=== PATIENT | male | born 1950 | race Caucasian/White ===

== ENCOUNTER → 2021-07-12 13:18 | Outpatient (CLI) | payer MEDICARE, OTHER, SELFPAY ==
[2021-07-12 15:18] LABS: Prostate Specific Antigen < 0.064 ng/mL (0.10-4.00)
== END ==
PROVIDERS: Referring Provider Student in an Organized Health Care Education/Training Program; Visit Provider Student in an Organized Health Care Education/Training Program
DX: C61 Malignant neoplasm of prostate (principal)
CPT/HCPCS: 36415; 84153

== ENCOUNTER → 2021-10-17 11:35 | Outpatient (CLI) | payer MEDICARE, BC, SELFPAY ==
[2021-10-17 13:26] LABS: Prostate Specific Antigen < 0.064 ng/mL (0.10-4.00)
== END ==
PROVIDERS: Referring Provider Student in an Organized Health Care Education/Training Program; Visit Provider Student in an Organized Health Care Education/Training Program
DX: C61 Malignant neoplasm of prostate (principal)
CPT/HCPCS: 36415; 84153

== ENCOUNTER → 2022-04-17 13:40 | Outpatient (CLI) | payer MEDICARE, BC, SELFPAY ==
[2022-04-17 15:05] LABS: Hematocrit 45.2 % (41-53); Hemoglobin 15.4 g/dL (13.5-17.5); Mean Corpuscular HGB Conc 34.1 % (30-36); Mean Corpuscular Hemoglobin 29.4 PG (26-34); Mean Corpuscular Volume 86.2 fL (80-100); Platelet Count 163 X10^3/uL (150-400); Red Blood Cell Count 5.24 X10^6/uL (4.5-5.9); Red Cell Distribution Width 13.9 % (11.6-14.8); White Blood Cell Count 5.6 X10^3/uL (4.5-11.0)
[2022-04-17 15:52] LABS: Alanine Aminotransferase 15 IU/L (<50); Albumin 4.5 g/dL (3.5-5.0); Albumin Globulin Ratio 1.5 (1.0-2.8); Alkaline Phosphatase 94 U/L (38-126); Aspartate Aminotransferase 26 IU/L (17-59); BUN Creatinine Ratio 16.7 (6-22); Bilirubin Total 0.7 mg/dL (0.2-1.3); Blood Urea Nitrogen 20 mg/dL (9-20); Calcium 9.3 mg/dL (8.4-10.2); Carbon Dioxide 28 mmol/L (22-32); Chloride 106 mmol/L (98-107); Cholesterol 288 mg/dL (140-199); Estimated Glomerular Filt Rate > 60 mL/min (>60); Glucose 91 mg/dL (80-110); HDL Cholesterol 65 mg/dL (40-60); HEMOLYSIS < 15 (0-50); LDL Cholesterol Calculated 183 mg/dL (<100); Potassium 4.3 mmol/L (3.4-5.1); Sodium 141 mmol/L (137-145); Total Protein 7.5 g/dL (6.3-8.2); Triglycerides 198 mg/dL (35-150)
[2022-04-17 16:21] LABS: TSH w/ Reflex to FT4 1.85 uIU/mL (0.47-4.68)
[2022-04-17 16:25] LABS: Prostate Specific Antigen < 0.064 ng/mL (0.10-4.00)
[2022-04-17 16:40] LABS: Vitamin B12 379 pg/mL (239-931)
== END ==
PROVIDERS: PCP Internal Medicine; Referring Provider Internal Medicine; Visit Provider Internal Medicine
DX: E78.2 Mixed hyperlipidemia (principal); C61 Malignant neoplasm of prostate; I10 Essential (primary) hypertension; I25.10 Atherosclerotic heart disease of native coronary artery without angina pectoris; E53.8 Deficiency of other specified B group vitamins
CPT/HCPCS: 36415; 80053; 80061; 82607; 84153; 84443; 85027

== ENCOUNTER → 2022-08-26 11:08 | Outpatient (CLI) | payer MEDICARE, BC, SELFPAY ==
[2022-08-26 12:31] LABS: Prostate Specific Antigen < 0.064 ng/mL (0.10-4.00)
== END ==
PROVIDERS: PCP Internal Medicine; Referring Provider Internal Medicine; Visit Provider Internal Medicine
DX: C61 Malignant neoplasm of prostate (principal)
CPT/HCPCS: 36415; 84153

== ENCOUNTER 2022-10-30 07:34 | Day surgery (SDC) | payer MEDICARE, BC, SELFPAY ==
--- NOTE | 2022-10-30 | PATH_ITS ---
[facility] Accession Number: [id number] No. of containers..01 Tissue . 01 Material submitted: . hepatic flexure - HEPATIC FLEXURE COLON POLYP . 01 Diagnosis: Hepatic Flexure Polyp: Tubular adenoma. MRV 11/01/2022 1130 Local . 01 Electronically signed: . Yves Bills MD, PhD, Pathologist NPI- [id number] . 01 Gross description: . HEPATIC FLEXURE COLON POLYP: Received in formalin is 1 fragment(s) of richardson, soft tissue measuring 0.4 x 0.2 x 0.2 cm submitted entirely in 1 cassette(s) /CPE 10/31/2022 0523 Local . 01 Pathologist provided ICD-10: D12.3 . 01 CPT . 495123 Specimen Comment: A courtesy copy of this report has been sent to [phone] Performed at: 01 [facility] [address] [place] [address], [place], [place] [id number] MD Kareem Mclaughlin MD Phone: [phone]
[2022-10-30 09:18] VITALS: BP 165/79; PULSE 65; RESP 16; TEMP 36.2; O2SAT 98; BMI 25.1
[2022-10-30 09:30] LABS: COVID19 -Nasal RAPID Negative (Negative)
[2022-10-30] MEDS: LACTATED RINGERS 1,000 ML 42 ML IV (09:35)
--- NOTE | 2022-10-30 09:48 | PM.HP.1 ---
History of Present Illness History of Present Illness Date Patient Seen: 10/30/22 Time Patient Seen: 09:48 Chief complaint: COLONOSCOPY Narrative: h/o colon polyps, last scope over 15 yrs ago. no symptoms. Patient History Medical History Chicken pox Colon polyps Coronary artery disease Essential hypertension Hearing loss Hemorrhoid History of colonic polyps History of elevated PSA (~2020) History of urinary incontinence Measles Medicare annual wellness visit, initial Mixed hyperlipidemia Mumps Ocular migraine Osteoarthritis Prostate cancer (~2020) PVC (premature ventricular contraction) Rubella Tinnitus Surgical History Anesthesia Hemorrhoid (~01/2021) History of radical prostatectomy (~03/2021) Family & Social History Family History Father Alzheimer's disease History of heart disease Mental health problem Stroke Mother History of heart disease Hypertension Hyperlipidemia Stroke Grandfather Myocardial infarction Grandmother Pneumonia Grandfather Alzheimer's disease Grandmother Congestive heart failure Social History: household members spouse Tobacco & Substance use: Smoking Status Never smoker alcohol intake frequency holiday/special occasion Substance Use Type does not use Meds Home Medications and Allergies Home Medications Medication Instructions Recorded Confirmed Type docusate sodium 100 mg capsule 100 mg PO DAILY PRN Constipation 02/28/22 10/30/22 History (Colace) rosuvastatin 10 mg tablet 10 mg PO .2 times weekly #30 tabs 02/28/22 10/30/22 Rx verapamil 240 mg 24 hr 240 mg PO DAILY #90 caps 08/26/22 10/30/22 Rx capsule,extended release sodium,potassium,mag sulfates 17.5 See Rx Instructions PO .COMPLEX 10/01/22 10/30/22 Rx gram-3.13 gram-1.6 gram oral soln #354 mL (Suprep Bowel Prep Kit) Allergies Allergy/AdvReac Type Severity Reaction Status Date / Time adhesive tape AdvReac Mild dermatitis Verified 10/30/22 09:08 Review of Systems Review of Systems ROS: Yes All systems reviewed with the patient and are negative except as otherwise documented Exam Vital Signs (past 8 hours): - 10/30/22 09:18 Temperature 97.1 F L Pulse Rate 65 Respiratory Rate 16 Blood Pressure 165/79 H Pulse Oximetry 98 Oxygen Delivery Method Room Air Oxygen Delivery Method Room Air Const General: cooperative and healthy appearing HENBRE Head: normal to inspection, normocephalic and atraumatic Face and sinus: normal facial exam Eyes General: appearance normal, both eyes and all related structures Neck Neck: trachea midline Resp Effort & Inspection: normal respiratory effort and able to speak in complete sentences Cardio Rate: regular rate Rhythm: regular rhythm GI Palpation: soft Skin General: no rashes or lesions noted Neuro General: patient alert, patient awake and patient oriented x3 Cognition: normal cognition Psych Appearance: grossly normal Mental Status: mental status grossly normal Judgment: judgment good Objective Labs Labs: Laboratory Results - last 24 hr 10/30/22 09:00 SARS-CoV-2 (PCR) Negative Assessment & Plan Assessment & Plan narrative: history for colon polyps colonoscopy using MAC COVID-19 COVID-19 status: Negative Time Spent With Patient Time with patient: less than 30 minutes Critical Care time: I spent a total of [] minutes of critical care time on this patient's care today; this time is exclusive of procedural time.
--- NOTE | 2022-10-30 10:09 | PM.OP.COLON ---
Operative Date/Time/Diagnoses Date of procedure: 10/30/22 Time of procedure: 10:09 Pre-op diagnosis: History of colon polyps Post-op diagnosis: same Procedure & Clinicians Study performed: Colonoscopy with cold forceps polypectomy under MAC Same procedure as scheduled: Yes Indications: History of colon polyps Surgeon: Jane Cochran Procedure Notes Procedure in detail: Preop diagnosis: History of colon polyps Postop diagnosis: Same Operative procedure: Colonoscopy with cold forceps polypectomy under MAC Surgeon: Shanelle Cochran MD Findings: Single 4 mm polyp at hepatic flexure, moderate size, numerous diverticuli in the descending colon Procedure: Patient placed in lateral position. Rectal exam performed showing normal tone no masses. Colonoscope inserted into the rectum and advanced to ileocecal valve with minimal difficulty. Insufflation extraction scope and the above findings. Impression: Single polyp at hepatic flexure measuring 4 mm in size taken with cold forceps. Numerous moderate-sized diverticuli of the descending colon. Internal hemorrhoids with evidence of scarring from prior hemorrhoidal artery ligation Plan: Repeat colonoscopy in 5 years unless otherwise indicated by change in clinical condition Findings: divertiulosis, internal hemorrhoids and polyp(s) (4 mm polyp at hepatic flexure) Specimen(s): other (Hepatic flexure polyp) Complications: none Post-procedure Recommendations: Colonoscopy in 5 years Follow up: as needed Disposition: PACU
[2022-10-30 10:16] VITALS: BP 102/67; PULSE 66; RESP 16; TEMP 36.4; O2SAT 97
[2022-10-30 10:22] VITALS: BP 113/70; PULSE 62; RESP 15; TEMP 36.4; O2SAT 96
[2022-10-30 10:27] VITALS: BP 121/73; PULSE 67; RESP 12; TEMP 36.3; O2SAT 99
[2022-10-30 10:50] VITALS: BP 127/60; PULSE 65; RESP 14; TEMP 36.4; O2SAT 98
== END 2022-10-30 10:52 | disposition home or self-care (01) ==
PROVIDERS: PCP Internal Medicine; Referring Provider Surgery; Visit Provider Surgery
PROC: 0DJD8ZZ Inspection of Lower Intestinal Tract, Via Natural or Artificial Opening Endoscopic (ICD-10-PCS; CPT 45378; principal; 2022-10-30 10:00)
DX: Z12.11 Encounter for screening for malignant neoplasm of colon (principal); Z86.010 Personal history of colon polyps; Z20.822 Contact with and (suspected) exposure to COVID-19; K57.30 Diverticulosis of large intestine without perforation or abscess without bleeding; K64.8 Other hemorrhoids; D12.3 Benign neoplasm of transverse colon
CPT/HCPCS: 45380; 87635; J2704

== ENCOUNTER 2022-11-20 06:56 | Emergency (ER) | payer MEDICARE, BC, SELFPAY ==
[2022-11-20 07:00] VITALS: BP 196/86; PULSE 82; RESP 15; TEMP 36.8; O2SAT 98; BMI 25.5
--- NOTE | 2022-11-20 07:32 | ED.ABDPAIN ---
HPI - Abdominal Pain General Chief Complaint: Abdominal Pain Stated Complaint: abd pain Time Seen by Provider: 11/20/22 07:25 Source: patient Mode of arrival: Ambulatory History of Present Illness HPI narrative: Patient is a 72-year-old male history of prostate cancer, hyperlipidemia presenting today with epigastric and chest pain. He said he felt fine when he went to sleep last night however he woke up feeling some epigastric pain which initially did radiate up into his chest but now he says it going into his upper abdomen. He describes it as sharp and burning. Pretty constant but seems to have lightened up since he been in the ED. No shortness of breath minimal nausea no vomiting. He had a normal bowel movement this morning. He thought it was his acid reflux but it does not seem to be going away. Patient does report that he is a history of nonocclusive coronary disease 10 years ago when he had partial occlusion of the LAD. He had a heart catheterization at that time. He is had no further symptoms. He is not had any further stress test her cart follow-up with Cardiology.. He does have a history of PVCs for which he takes verapamil for but denies any palpitations currently. He denies any fever or chills. He was in his normal state of health last night. Related Data Home Medications Medication Instructions Recorded Confirmed docusate sodium 100 mg capsule 100 mg PO DAILY PRN Constipation 02/28/22 10/30/22 (Colace) Previous Rx's Medication Instructions Recorded rosuvastatin 10 mg tablet 10 mg PO .2 times weekly #30 tabs 02/28/22 verapamil 240 mg 24 hr 240 mg PO DAILY #90 caps 08/26/22 capsule,extended release sodium,potassium,mag sulfates 17.5 See Rx Instructions PO .COMPLEX 10/01/22 gram-3.13 gram-1.6 gram oral soln #354 mL (Suprep Bowel Prep Kit) hydrocodone 5 mg-acetaminophen 325 1 tab PO Q6H PRN pain #10 tabs 11/20/22 mg tablet ondansetron 4 mg disintegrating 4 mg PO Q8H PRN nausea and 11/20/22 tablet vomiting #10 tabs Allergies Allergy/AdvReac Type Severity Reaction Status Date / Time adhesive tape AdvReac Mild dermatitis Verified 11/20/22 07:02 Review of Systems Review of Systems ROS Unobtainable: All systems reviewed & are unremarkable except as noted in HPI and below Patient History Medical History Chicken pox Colon polyps Coronary artery disease Essential hypertension Hearing loss Hemorrhoid History of colonic polyps History of elevated PSA (~2020) History of urinary incontinence Measles Medicare annual wellness visit, initial Mixed hyperlipidemia Mumps Ocular migraine Osteoarthritis Prostate cancer (~2020) PVC (premature ventricular contraction) Rubella Tinnitus Surgical History Anesthesia Hemorrhoid (~01/2021) History of radical prostatectomy (~03/2021) Family History Father Alzheimer's disease History of heart disease Mental health problem Stroke Mother History of heart disease Hypertension Hyperlipidemia Stroke Grandfather Myocardial infarction Grandmother Pneumonia Grandfather Alzheimer's disease Grandmother Congestive heart failure 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 HEENT: Head atraumatic,EOMI, pupils reactive, face symmetric, moist mucous membranes CARDIOVASCULAR: Regular rate and rhythm without murmurs, rubs or gallops. RESPIRATORY: Breath sounds equal bilaterally, no wheezes rales or rhonchi. ABDOMEN: Soft, minimal epigastric pain no significant right upper quadrant pain no guarding : No CVA tenderness EXTREMITIES: Normal range of motion, no clubbing or edema. Neurovascularly intact NEUROLOGICAL: Alert and oriented x4.Normal gait and speech. SKIN: Warm, dry, no laceration, no petechiae, no rashes or lesions. Course Orders Ordered: ED Orders 11/20/22 07:02 EKG-12 Lead Stat 11/20/22 07:03 Complete Blood Count AUTO DIFF Stat Comprehensive Metabolic Panel Stat Lipase Stat Troponin & CK Cardiac Panel Stat 11/20/22 08:05 US abdomen limited Stat 11/20/22 08:10 Urine Microscopic Stat 11/20/22 09:05 Trop I [Troponin I] Stat 11/20/22 09:18 EKG-12 Lead Routine 11/20/22 09:50 CMP [Comprehensive Metabolic Panel] Stat Lipase Stat Discontinued Medications Sodium Chloride (Normal Saline 0.9%) 1,000 mls @ 1,000 mls/hr IV BOLUS ONE Stop: 11/20/22 09:15 Last Infusion: 11/20/22 09:36 Dose: 0 mls/hr Documented By: Admin: 11/20/22 08:45 Dose: 1,000 mls/hr Documented By: MALAIKA Sodium Chloride (Normal Saline 0.9%) 1,000 mls @ 1,000 mls/hr IV BOLUS ONE Stop: 11/20/22 10:36 Last Infusion: 11/20/22 11:16 Dose: 0 mls/hr Documented By: Admin: 11/20/22 09:39 Dose: 1,000 mls/hr Documented By: MALAIKA Verapamil HCl (Verapamil Sr 120 Mg Tablet) 240 mg PO DAILY CESILIA Last Admin: 11/20/22 09:40 Dose: 240 mg Documented By: MALAIKA Vital Signs Vital signs: Vital Signs - 8 hr 11/20/22 07:00 11/20/22 08:47 11/20/22 10:44 Temperature 98.2 F Pulse Rate 82 67 70 Respiratory Rate 15 18 Blood Pressure 196/86 H 206/99 H 192/82 H Pulse Oximetry 98 99 Oxygen Delivery Method Room Air Room Air MDM - Abdominal Pain Lab Data Result diagrams: 11/20/22 07:03 11/20/22 09:50 Labs: Lab Results 11/20/22 11/20/22 11/20/22 Range/Units 07:03 07:03 07:03 WBC 9.9 (4.5-11.0) X10^3/uL RBC 5.38 (4.5-5.9) X10^6/uL Hgb 15.7 (13.5-17.5) g/dL Hct 46.9 (41-53) % MCV 87.3 (80-100) fL MCH 29.2 (26-34) PG MCHC 33.4 (30-36) % RDW 14.5 (11.6-14.8) % Plt Count 187 (150-400) X10^3/uL Neut % (Auto) 86.0 H (50-75) % Lymph % (Auto) 7.4 L (25-40) % Buchanan % (Auto) 6.0 (3-14) % Eos % (Auto) 0.2 L (2-4) % Baso % (Auto) 0.4 (0-2) % Neut # (Auto) 8500 H (1602-7913) /uL Lymph # (Auto) 700 L (8983-3943) /uL Buchanan # (Auto) 600 (0-900) /uL Eos # (Auto) 0 (0-450) /uL Baso # (Auto) 0 (0-100) /uL Sodium 138 (137-145) mmol/L Potassium 4.3 (3.4-5.1) mmol/L Chloride 103 (98-107) mmol/L Carbon Dioxide 23 (22-32) mmol/L BUN 27 H (9-20) mg/dL Creatinine 1.06 (0.66-1.25) mg/dL Estimated GFR > 60 (>60) mL/min BUN/Creatinine Ratio 25.5 H (6-22) Glucose 122 H (80-110) mg/dL Calcium 9.0 (8.4-10.2) mg/dL Total Bilirubin 0.7 (0.2-1.3) mg/dL AST 33 (17-59) IU/L ALT 23 (<50) IU/L Alkaline Phosphatase 103 (38-126) U/L Total Creatine Kinase 127 (55-170) U/L CK-MB (CK-2) 1.00 (<2.37) ng/mL CK-MB (CK-2) Rel Index 0.8 L (1.5-5.0) % Troponin I < 0.012 (0.01-0.034) ng/mL Total Protein 8.4 H (6.3-8.2) g/dL Lipase 7596 H (23-300) U/L Urine RBC (0-5/HPF) Urine WBC (0-5/HPF) Urine Bacteria (None) Ur Culture Indicated? Micro UA Comment 11/20/22 11/20/22 11/20/22 Range/Units 08:10 09:05 09:50 WBC (4.5-11.0) X10^3/uL RBC (4.5-5.9) X10^6/uL Hgb (13.5-17.5) g/dL Hct (41-53) % MCV (80-100) fL MCH (26-34) PG MCHC (30-36) % RDW (11.6-14.8) % Plt Count (150-400) X10^3/uL Neut % (Auto) (50-75) % Lymph % (Auto) (25-40) % Buchanan % (Auto) (3-14) % Eos % (Auto) (2-4) % Baso % (Auto) (0-2) % Neut # (Auto) (8835-1846) /uL Lymph # (Auto) (9859-6960) /uL Buchanan # (Auto) (0-900) /uL Eos # (Auto) (0-450) /uL Baso # (Auto) (0-100) /uL Sodium 136 L (137-145) mmol/L Potassium 4.7 (3.4-5.1) mmol/L Chloride 105 (98-107) mmol/L Carbon Dioxide 23 (22-32) mmol/L BUN 24 H (9-20) mg/dL Creatinine 1.04 (0.66-1.25) mg/dL Estimated GFR > 60 (>60) mL/min BUN/Creatinine Ratio 23.1 H (6-22) Glucose 113 H (80-110) mg/dL Calcium 8.4 (8.4-10.2) mg/dL Total Bilirubin 0.6 (0.2-1.3) mg/dL AST 28 (17-59) IU/L ALT 21 (<50) IU/L Alkaline Phosphatase 93 (38-126) U/L Total Creatine Kinase (55-170) U/L CK-MB (CK-2) (<2.37) ng/mL CK-MB (CK-2) Rel Index (1.5-5.0) % Troponin I < 0.012 (0.01-0.034) ng/mL Total Protein 7.4 (6.3-8.2) g/dL Lipase 5508 H (23-300) U/L Urine RBC None seen (0-5/HPF) Urine WBC None seen (0-5/HPF) Urine Bacteria None seen (None) Ur Culture Indicated? Cult not indicated Micro UA Comment Microscopic normal Point of care testing: Urine Dip Bedside Urine Glucose Negative Bedside Urine Bilirubin - Negative Bedside Urine Ketone - Negative Urine Specific Calypso 1.025 Bedside Urine Occult Blood +/- Bedside Urine pH 6.0 Bedside Urine Protein +/- 15 Bedside Urine Urobilinogen - Negative Bedside Urine Nitrite - Negative Bedside Urine Leukocytes - Negative Esterase Imaging Data US - abdomen: Radiologist's Impression: No acute cholecystitis demonstrated Multiple gallstones CBD and pancreas are not well seen CT abdomen pelvis with IV contrast could be considered for further evaluation ECG Data Interpretation: EKG 1. Sinus rhythm rate 77 FL interval 174 QRS 86 QTC 425 artifact noted posterior fascicular block noted n T-wave inversion noted in V1, EKG 2. Sinus rhythm rate 73 continuous artifact and posterior fascicular block no acute changes of note MDM Narrative Medical decision making narrative: Patient 72-year-old male history of remote nonocclusive acute coronary disease presents today with epigastric pain. He is not requiring any pain medicine or nausea medication in the ED. He is found to have pancreatitis with lipase greater than 7000. Normal bilirubin normal liver enzymes. Ultrasound does show multiple mobile stones without evidence of acute cholecystitis. No evidence of common bile duct obstruction. 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 We talked about CT and possible MRCP however without elevated bilirubin or liver enzymes we both feel comfortable for going this testing. He has repeat blood work which demonstrates improvement in lipase and persistently normal bilirubin and liver enzymes. Patient is tolerating fluids. He is offered pain medication but declines at this time. He is no leukocytosis no fever no sign of sepsis. He is 2- troponins no sign of acute coronary syndrome. Patient is noted to have significantly elevated blood pressure here in the ED. He reports not taking his verapamil this morning. He is no evidence of end-organ damage. Discussion with Dr. Dimas acuna who agrees with outpatient follow-up as needed. I suspect he passed gallstone in his not having any occlusion. He has improving numbers tolerating fluids and overall appears well. This time I did discuss with both he and his about going home which they both agree to. NELSON CC: Epigastric pain Complicating co-morbidities: Nonocclusive acute coronary syndrome Corroborating data: [ ] Data collected from: [ ] Medical records reviewed: PCP no 08/26/2022 Differential considered: Acute coronary syndrome, GERD, cholecystitis cholelithiasis choledocholithiasis, pancreatitis, perforation, aortic dissection Exam documented above, pertinent findings include: Epigastric pain Lab Test results independently reviewed as above. Pertinent findings: [ ] Independently reviewed EKG as above Imaging studies independently reviewed: Abdominal ultrasound Consultations: Dr. Cochran surgery Treatments: 2 L IV fluids Re-evaluations: Mild pain overall appears well Discussion: As above Diagnosis: Pancreatitis Disposition: see below, along with detailed discharge instructions that have been reviewed with patient as well as indications for ED re-evaluation and additional outpatient follow up Discharge Plan Departure Patient Disposition: Home Clinical Impression: Acute pancreatitis Instructions: DI for Pancreatitis Activity Restrictions/Additional Instructions: *You have been diagnosed with pancreatitis *What to do: At this time increase fluids has tolerated recommend clear liquid diet. You will need to have her gallbladder removed but not emergent at this time. Please follow-up with surgery *Continue to take medications as directed --> SENT TO [facility] 4 every 8 hours if needed for nausea or vomiting [place] 1 tablet every 6 hours if needed for severe pain *Follow up with your primary care provider in 2-3 days or call [phone] Call surgery today or tomorrow to schedule follow-up appoint *Return to ER if you should have Increased pain fever persistent vomiting chest or any new, worsening or concerning symptoms CONTROLLED SUBSTANCE DISCHARGE (Narcotoic/benzodiazepine/Flexeril/Phenergan) 1. You have been prescribed narcotic medications, it does have acetaminophen/Tylenol/paracetamol in it, DO NOT TAKE MORE THAN 4,00mg in 24 hours of Tylenol. TRAMADOL DOES NOT CONTAIN TYLENOL 2. Please understand that we cannot provide further refills of narcotics, benzodiazepines or controlled substances through the ED and her pain management will need to be through your provider. 3. While on these medications you cannot drive or operate heavy machinery. 4. You cannot sign legal documents or perform any duties such as this. 5. As long as you're taking opiate pain medications he should also be taking a stool softener such as Colace, Dulcolax, MiraLAX or prune juice, to help avoid constipation. Prescriptions: New hydrocodone-acetaminophen 5-325 mg tablet 1 tab PO Q6H PRN (Reason: pain) Qty: 10 0RF ondansetron 4 mg tablet,disintegrating 4 mg PO Q8H PRN (Reason: nausea and vomiting) Qty: 10 0RF No Action sodium,potassium,mag sulfates [Suprep Bowel Prep Kit] 17.5-3.13-1.6 gram recon soln See Rx Instructions PO .COMPLEX Qty: 354 0RF Rx Instructions: Take as directed by Physician docusate sodium [Colace] 100 mg capsule 100 mg PO DAILY PRN (Reason: Constipation) rosuvastatin 10 mg tablet 10 mg PO .2 times weekly Qty: 30 3RF verapamil 240 mg capsule,ext rel. pellets 24 hr 240 mg PO DAILY Qty: 90 3RF Referrals: [facility] [Provider Group] [place] MD [Primary Care Provider] - Stand Alone Forms: Patient Portal/API
[2022-11-20 07:34] LABS: Add Manual Diff / Slide Review NO; Basophils Absolute Auto 0 /uL (0-100); Basophils Percent Auto 0.4 % (0-2); Eosinophils Absolute Auto 0 /uL (0-450); Eosinophils Percent Auto 0.2 % (2-4); Hematocrit 46.9 % (41-53); Hemoglobin 15.7 g/dL (13.5-17.5); Lymphocytes Absolute Auto 700 /uL (1100-4500); Lymphocytes Percent Auto 7.4 % (25-40); Mean Corpuscular HGB Conc 33.4 % (30-36); Mean Corpuscular Hemoglobin 29.2 PG (26-34); Mean Corpuscular Volume 87.3 fL (80-100); Monocytes Absolute Auto 600 /uL (0-900); Neutrophils Absolute Auto 8500 /uL (1500-7000); Platelet Count 187 X10^3/uL (150-400); Red Blood Cell Count 5.38 X10^6/uL (4.5-5.9); Red Cell Distribution Width 14.5 % (11.6-14.8); White Blood Cell Count 9.9 X10^3/uL (4.5-11.0)
[2022-11-20 07:41] LABS: Alanine Aminotransferase 23 IU/L (<50); Alkaline Phosphatase 103 U/L (38-126); Aspartate Aminotransferase 33 IU/L (17-59); BUN Creatinine Ratio 25.5 (6-22); Bilirubin Total 0.7 mg/dL (0.2-1.3); Blood Urea Nitrogen 27 mg/dL (9-20); Carbon Dioxide 23 mmol/L (22-32); Chloride 103 mmol/L (98-107); Estimated Glomerular Filt Rate > 60 mL/min (>60); Glucose 122 mg/dL (80-110); Potassium 4.3 mmol/L (3.4-5.1); Sodium 138 mmol/L (137-145); Total Protein 8.4 g/dL (6.3-8.2)
[2022-11-20 08:01] LABS: Creatine Kinase 127 U/L (55-170)
--- NOTE | 2022-11-20 08:05 | DI.US.S_ITS ---
PROCEDURE: US ABDOMEN LIMITED INDICATIONS: RUQ TECHNIQUE: Real-time scanning was performed of the right upper quadrant, with image documentation. COMPARISON: None. FINDINGS: Liver: Liver is normal in size and homogeneous in echotexture. Gallbladder: Nondilated. Gallstones are present. 2 stones measuring 0.8 cm are seen. Stones are mobile. Gallbladder wall thickness is felt to be within normal limits. No pericholecystic fluid. Negative sonographic Kaiser's sign. Biliary ducts: No intrahepatic biliary ductal dilatation is seen. CHD measures 3 mm. CBD is not well seen. Pancreas: Not well seen. IMPRESSION: No acute cholecystitis demonstrated. Mobile gallstones. CBD and pancreas are not well seen. CT abdomen pelvis with IV contrast could be considered for further evaluation. Dictated by: Anthony Eden M.D. on 11/20/2022 at 8:26 Approved by: Anthony Eden M.D. on 11/20/2022 at 8:28
[2022-11-20 08:06] LABS: Lipase 7596 U/L (23-300)
[2022-11-20 08:14] LABS: Troponin I < 0.012 ng/mL (0.01-0.034)
[2022-11-20 08:16] LABS: Bacteria Urine None Seen; Culture Indicated Urine Cult Not Indicated; RBC Urine None Seen (0-5/HPF); Urine Comments Microscopic Normal; WBC Urine None Seen (0-5/HPF)
[2022-11-20 08:24] LABS: CKMB % Relative Index 0.8 % (1.5-5.0)
[2022-11-20] MEDS: SODIUM CHLORIDE 0.9% 1,000 ML 1000 ML IV ×2 (08:45→09:39)
[2022-11-20 08:47] VITALS: BP 206/99; PULSE 67; RESP 18; O2SAT 99
[2022-11-20 09:37] LABS: Troponin I < 0.012 ng/mL (0.01-0.034)
[2022-11-20] MEDS: VERAPAMIL SR 120 MG TABLET 240 MG PO (09:40)
[2022-11-20 10:07] LABS: Alanine Aminotransferase 21 IU/L (<50); Alkaline Phosphatase 93 U/L (38-126); Aspartate Aminotransferase 28 IU/L (17-59); BUN Creatinine Ratio 23.1 (6-22); Bilirubin Total 0.6 mg/dL (0.2-1.3); Blood Urea Nitrogen 24 mg/dL (9-20); Calcium 8.4 mg/dL (8.4-10.2); Carbon Dioxide 23 mmol/L (22-32); Chloride 105 mmol/L (98-107); Estimated Glomerular Filt Rate > 60 mL/min (>60); Glucose 113 mg/dL (80-110); HEMOLYSIS < 15 (0-50); Potassium 4.7 mmol/L (3.4-5.1); Sodium 136 mmol/L (137-145); Total Protein 7.4 g/dL (6.3-8.2)
[2022-11-20 10:23] LABS: Lipase 5508 U/L (23-300)
[2022-11-20 10:44] VITALS: BP 192/82; PULSE 70
[2022-11-22 16:40] LABS: Albumin 4.1 g/dL (3.5-5.0); Albumin Globulin Ratio 1.2 (1.0-2.8); Globulin 3.3 g/dL (1.7-4.1)
[2022-11-22 20:15] LABS: Albumin 4.5 g/dL (3.5-5.0); Albumin Globulin Ratio 1.2 (1.0-2.8); Globulin 3.9 g/dL (1.7-4.1); HEMOLYSIS 27 (0-50)
== END 2022-11-20 11:20 | disposition home or self-care (01) ==
PROVIDERS: Emergency Provider Emergency Medicine; PCP Internal Medicine
DX: K85.90 Acute pancreatitis without necrosis or infection, unspecified (principal); R10.13 Epigastric pain; R07.9 Chest pain, unspecified
CPT/HCPCS: 76705; 80053; 81003; 81015; 82550; 82553; 83690; 84484; 85025; 93005; 96360; 96361; 99284

== ENCOUNTER → 2023-03-27 13:34 | Outpatient (CLI) | payer MEDICARE, BC, SELFPAY ==
[2023-03-27 15:09] LABS: Alanine Aminotransferase 22 IU/L (<50); Albumin 4.4 g/dL (3.5-5.0); Albumin Globulin Ratio 1.6 (1.0-2.8); Alkaline Phosphatase 95 U/L (38-126); Aspartate Aminotransferase 27 IU/L (17-59); BUN Creatinine Ratio 16.5 (6-22); Bilirubin Total 0.5 mg/dL (0.2-1.3); Blood Urea Nitrogen 20 mg/dL (9-20); Calcium 9.4 mg/dL (8.4-10.2); Carbon Dioxide 28 mmol/L (22-32); Chloride 105 mmol/L (98-107); Estimated Glomerular Filt Rate > 60 mL/min (>60); Globulin 2.8 g/dL (1.7-4.1); Glucose 80 mg/dL (80-110); HEMOLYSIS < 15 (0-50); Lipase 62 U/L (23-300); Potassium 4.3 mmol/L (3.4-5.1); Sodium 140 mmol/L (137-145); Total Protein 7.2 g/dL (6.3-8.2)
[2023-03-27 15:27] LABS: Add Manual Diff / Slide Review NO; Basophils Absolute Auto 100 /uL (0-100); Eosinophils Absolute Auto 100 /uL (0-450); Eosinophils Percent Auto 1.6 % (2-4); Hematocrit 44.7 % (41-53); Hemoglobin 15.2 g/dL (13.5-17.5); Lymphocytes Absolute Auto 1600 /uL (1100-4500); Lymphocytes Percent Auto 26.9 % (25-40); Mean Corpuscular Hemoglobin 29.7 PG (26-34); Mean Corpuscular Volume 87.3 fL (80-100); Monocytes Absolute Auto 500 /uL (0-900); Monocytes Percent Auto 8.9 % (3-14); Neutrophils Absolute Auto 3700 /uL (1500-7000); Neutrophils Percent Auto 61.6 % (50-75); Platelet Count 174 X10^3/uL (150-400); Red Blood Cell Count 5.11 X10^6/uL (4.5-5.9); White Blood Cell Count 6.1 X10^3/uL (4.5-11.0)
[2023-03-27 15:39] LABS: Prostate Specific Antigen < 0.064 ng/mL (0.10-4.00)
== END ==
PROVIDERS: PCP Internal Medicine; Referring Provider Internal Medicine; Visit Provider Internal Medicine
DX: C61 Malignant neoplasm of prostate (principal); K80.20 Calculus of gallbladder without cholecystitis without obstruction; K85.90 Acute pancreatitis without necrosis or infection, unspecified
CPT/HCPCS: 36415; 80053; 83690; 84153; 85025

== ENCOUNTER → 2023-10-15 14:42 | Outpatient (CLI) | payer MEDICARE, BC, SELFPAY ==
[2023-10-15 15:39] LABS: Aspartate Aminotransferase 29 IU/L (17-59); BUN Creatinine Ratio 16.7 (6-22); Blood Urea Nitrogen 20 mg/dL (9-20); Calcium 9.5 mg/dL (8.4-10.2); Carbon Dioxide 23 mmol/L (22-32); Chloride 105 mmol/L (98-107); Cholesterol 246 mg/dL (140-199); Estimated Glomerular Filt Rate > 60 mL/min (>60); Glucose 87 mg/dL (80-110); HDL Cholesterol 60 mg/dL (40-60); HEMOLYSIS < 15 (0-50); LDL Cholesterol Calculated 147 mg/dL (<100); Potassium 4.4 mmol/L (3.4-5.1); Sodium 137 mmol/L (137-145); Triglycerides 196 mg/dL (35-150)
[2023-10-15 16:42] LABS: Microalbumin Urine Random 1.1 mg/dL (0-1.6)
[2023-10-15 16:44] LABS: Creatinine Urine Random 205.1 mg/dL; Microalbumi Creatinin Ratio Ur 5.3 ug/mg CR (<30)
== END ==
PROVIDERS: PCP Internal Medicine; Referring Provider Internal Medicine; Visit Provider Internal Medicine
DX: E78.2 Mixed hyperlipidemia (principal); I10 Essential (primary) hypertension
CPT/HCPCS: 36415; 80048; 80061; 82043; 82570; 84450

== ENCOUNTER → 2025-03-15 08:02 | Outpatient (CLI) | payer MEDICARE, BC, SELFPAY ==
--- NOTE | 2025-03-15 08:04 | DI.ECHO.S_ITS ---
[facility]+ [facility] : : [address] : : [id number] : : Phone: [phone] Echocardiogram Report + + :Name: BRITTA MARLEY Study Date: 03/15/2025 Height: 68 in : :Hospital ReadingLocation: Weight: 165 lb : : Gender: Male BSA: 1.9 m2 : :: 1950 Age: 75 yrs BP: 146/87 mmHg: :Reason For Study: MURMUR, CAD, DYSPNEA : :Ordering Physician: JESICA, : :MARISSA Performed By: Jase Kong : :Referring: MARISSA MOONEY : + + Interpretation Summary Normal sinus rhythm. Normal LV size and wall thickness; EF is 65-70%. Normal chamber sizes. No valvular abnormalities. No prior study available for comparison. Procedure: A two-dimensional transthoracic echocardiogram with color flow and Doppler was performed. The study quality was technically good. There is no prior echocardiogram noted for this patient. The patient had occasional PVCs during the exam. Left Ventricle: The left ventricle is normal in size. There is normal left ventricular wall thickness. There is no ventricular septal defect visualized. The ejection fraction is estimated to be 65-70%. There are no focal wall motion abnormalities. Diastolic parameters suggest probable normal left ventricular diastolic function and normal filling pressures. Right Ventricle: The right ventricle is normal in size and function. Atria: The left atrial size is normal. Right atrial size is normal. There is no Doppler evidence for an interatrial shunt. Mitral Valve: The mitral valve leaflets appear normal. There is no evidence of stenosis, fluttering, or prolapse. There is trace mitral regurgitation. Aortic Valve: The aortic valve is trileaflet. The aortic valve opens well. No aortic regurgitation is present. Tricuspid Valve: The tricuspid valve leaflets are thin and pliable. There is mild tricuspid regurgitation. Pulmonic Valve: The pulmonic valve leaflets are thin and pliable; valve motion is normal. There is mild pulmonic regurgitation. Great Vessels: The aortic root is normal size. The dimensions of the ascending aorta are normal. The pulmonary artery is normal size. The inferior vena cava was not visualized. Pericardium/ Pleura There is no pericardial effusion. MMode/2D Measurements & Calculations LVIDd: 5.2 cm LVOT diam: 2.0 cm LVIDs: 2.9 cm Ao root diam: 3.0 cm FS: 45.7 % asc Aorta Diam: 3.3 cm EPSS: 0.66 cm IVSd: 0.75 cm LVPWd: 0.83 cm LV sahni. diameter/BSA (cm/m^2): 2.8 LV sys. diameter/BSA (cm/m^2): 1.5 LA A2 area: 18.8 cm2 RA long axis: 4.4 cm LA A4 area: 18.5 cm2 RA area: 12.8 cm2 LA length (vol): 5.7 cm RA vol: 31.7 ml LA vol: 51.8 ml RA : 16.8 ml/m2 LA vol index: 27.5 ml/m2 RVD1 (basal): 3.4 cm RVD2 (mid): 3.2 cm TAPSE: 2.5 cm Doppler Measurements & Calculations Ao V2 max: 143.7 cm/sec LVOT Max Roman: 114.7 cm/sec Ao V2 mean: 109.0 cm/sec LV V1 max P.3 mmHg Ao max P.3 mmHg LV V1 VTI: 23.1 cm Ao mean P.1 mmHg CONY(I,D): 1.9 cm2 Ao V2 VTI: 36.1 cm CONY(V,D): 2.4 cm2 sev ratio: 0.64 CONY indexed to BSA (cm^2/m^2): 1.0 MV E max roman: 81.6 cm/sec TR max roman: 297.9 cm/sec MV A max roman: 78.9 cm/sec TR max P.5 mmHg MV E/A: 1.0 PA V2 max: 114.4 cm/sec Med Peak E' Roman: 8.2 cm/sec PA V2 mean: 83.0 cm/sec E/E' med: 10.0 PA mean P.9 mmHg Lat Peak E' Roman: 7.4 cm/sec PA pr(Accel): 49.9 mmHg E/E' lat: 11.1 E/e' average: 10.5 MV dec time: 0.21 sec SV(LVOT): 70.3 ml Electronically signed by: Luz Marina Fitch M.D. on Reading Physician:03/15/2025 07:53 PM
[2025-03-15 10:09] LABS: Hematocrit 45.1 % (41-53); Hemoglobin 15.4 g/dL (13.5-17.5); Mean Corpuscular HGB Conc 34.1 % (30-36); Mean Corpuscular Volume 88.2 fL (80-100); Platelet Count 171 X10^3/uL (150-400); Red Blood Cell Count 5.11 X10^6/uL (4.5-5.9); Red Cell Distribution Width 13.7 % (11.6-14.8)
[2025-03-15 10:32] LABS: Alanine Aminotransferase 24 IU/L (<50); Albumin 4.6 g/dL (3.5-5.0); Albumin Globulin Ratio 1.7 (1.0-2.8); Alkaline Phosphatase 99 U/L (38-126); Aspartate Aminotransferase 31 IU/L (17-59); BUN Creatinine Ratio 17.3 (6-22); Bilirubin Total 0.9 mg/dL (0.2-1.3); Blood Urea Nitrogen 24 mg/dL (9-20); Calcium 9.3 mg/dL (8.4-10.2); Carbon Dioxide 23 mmol/L (22-32); Chloride 105 mmol/L (98-107); Cholesterol 256 mg/dL (140-199); Estimated Glomerular Filt Rate 53 mL/min (>60); Globulin 2.7 g/dL (1.7-4.1); Glucose 110 mg/dL (70-99); HDL Cholesterol 77 mg/dL (40-60); HEMOLYSIS < 15 (0-50); LDL Cholesterol Calculated 147 mg/dL (<100); Potassium 4.6 mmol/L (3.4-5.1); Sodium 138 mmol/L (137-145); Total Protein 7.3 g/dL (6.3-8.2); Triglycerides 160 mg/dL (35-150)
[2025-03-15 10:59] LABS: Prostate Specific Antigen < 0.064 ng/mL (0.10-4.00)
[2025-03-15 11:19] LABS: Vitamin B12 Reflex MMA if <400 436 pg/mL (239-931)
== END ==
LOC: ECHO 08:04
PROVIDERS: PCP Internal Medicine; Referring Provider Internal Medicine; Visit Provider Internal Medicine
DX: I07.1 Rheumatic tricuspid insufficiency (principal); R06.00 Dyspnea, unspecified; I25.10 Atherosclerotic heart disease of native coronary artery without angina pectoris; C61 Malignant neoplasm of prostate; R01.1 Cardiac murmur, unspecified; I49.3 Ventricular premature depolarization; E78.2 Mixed hyperlipidemia; E53.8 Deficiency of other specified B group vitamins
CPT/HCPCS: 36415; 80053; 80061; 82607; 84153; 85027; 93306